=== PATIENT | male | born 1965 | race Hispanic/Latino ===

== ENCOUNTER 2018-04-22 17:15 | Emergency (ER) | payer BC ==
--- NOTE | 2018-04-22 18:04 | ER ---
Nurse's Notes [facility] Name: Yovanny Chow Age: 52 yrs Sex: Male : 1965 Arrival Date: 04/22/2018 Time: 17:20 Bed 16 Private MD: Venancio Bartlett Diagnosis: Effusion, left knee Presentation: 04/22 17:32 Presenting complaint: Patient states: I have been left knee pain for about a month and la1 I have been being worked up by an ortho doctor, they gave me a steroid injection one week ago, the pain is back and now A couple areas of swelling popped up on my graham. Transition of care: patient was not received from another setting of care. Onset of symptoms was April 22, 2018. Risk Assessment: Do you want to hurt yourself or someone else? Patient reports no desire to harm self or others. Initial Sepsis Screen: Does the patient meet any 2 criteria? No. Patient's initial sepsis screen is negative. Does the patient have a suspected source of infection? No. Patient's initial sepsis screen is negative. Care prior to arrival: None. 17:32 Method Of Arrival: Ambulatory la1 17:32 Acuity: TIMOTHY 4 la1 Historical: - Allergies: 17:30 No Known Allergies; la1 - PMHx: 17:30 Diabetes - NIDDM; Hypertension; la1 - Immunization history:: Adult Immunizations up to date. - Social history:: Smoking status: Patient/guardian denies using tobacco. - Ebola Screening: : No symptoms or risks identified at this time. Screenin:33 Abuse screen: Denies threats or abuse. Denies injuries from another. Nutritional jl7 screening: No deficits noted. Tuberculosis screening: No symptoms or risk factors identified. Fall Risk None identified. Assessment: 18:00 General: Appears in no apparent distress. uncomfortable, Behavior is calm, cooperative, jl7 appropriate for age. Pain: Complains of pain in left knee Pain currently is 10 out of 10 on a pain scale. Neuro: Level of Consciousness is awake, alert, obeys commands, Oriented to person, place, time, situation. Cardiovascular: Patient's skin is warm and dry. Respiratory: Airway is patent Respiratory effort is even, unlabored, Respiratory pattern is regular, symmetrical. Derm: Skin is pink, warm \T\ dry. Vital Signs: 17:31 BP 135 / 100; Pulse 92; Resp 16; Temp 97.3; Pulse Ox 98% on R/A; Weight 142.88 kg; la1 Height 6 ft. 3 in. (190.50 cm); 18:33 BP 140 / 87; Pulse 87; Resp 16; Pulse Ox 95% ; Pain 10/10; jl7 17:31 Body Mass Index 39.37 (142.88 kg, 190.50 cm) la1 ED Course: 17:20 Patient arrived in ED. mr 17:21 Venancio Bartlett is Private Physician. mr 17:31 Arm band placed on left wrist. la1 17:33 Triage completed. la1 17:50 Brian Lopez MD is Attending Physician. kdr 18:00 Patient has correct armband on for positive identification. jl7 18:03 Iftikhar Ramírez MD is Referral Physician. kdr 18:10 Pedro Reese, RASHAUN is Primary Nurse. jl7 18:34 No provider procedures requiring assistance completed. Patient did not have IV access jl7 during this emergency room visit. 18:34 Crutch training done. Knee immobilizer applied on left knee. jl7 Administered Medications: 18:35 Not Given (Patient Refused): Ibuprofen 800 mg PO once jl7 Outcome: 18:04 Discharge ordered by . kdr 18:34 Discharged to home ambulatory, with crutches. jl7 18:34 Condition: stable 18:34 Discharge instructions given to patient, Instructed on discharge instructions, follow up and referral plans. medication usage, crutch walking, Demonstrated understanding of instructions, follow-up care, medications, Prescriptions given X 2. 18:35 Patient left the ED. jl7 Signatures: Brian Lopez MD MD kdr Rivera, Mary Abdiaziz Ramsey, RN RN la1 Pedro Reese, RASHAUN RN jl7
--- NOTE | 2018-04-22 18:05 | EDPHYS ---
Physician Documentation [facility] Name: Yovanny Chow Age: 52 yrs Sex: Male : 1965 Arrival Date: 04/22/2018 Time: 17:20 Bed 16 Private MD: Venancio Bartlett ED Physician Brian Lopez HPI: 04/22 18:08 This 52 yrs old Male presents to ER via Ambulatory with complaints of Knee kdr Pain. 18:08 The patient presents with decreased range of motion, pain, that is acute. The kdr complaints affect the lateral aspect of left knee, posterior aspect of left knee, medial aspect of left knee and left knee. Context: The problem was sustained at an unknown site, resulted from an unknown cause, the patient can fully bear weight, the patient is able to ambulate, with mild difficulty. Onset: The symptoms/episode began/occurred gradually, 10 day(s) ago. Modifying factors: The symptoms are alleviated by remaining still, the symptoms are aggravated by movement, weight bearing, bending knee. Associated signs and symptoms: The patient has no apparent associated signs or symptoms, Pertinent positives: swelling, Pertinent negatives calf tenderness, fever, nausea, numbness, rash, tingling, vomiting, warmth, weakness. Treatment prior to arrival includes: The patient had a steroid injection from Dr. Larios about a week ago. 18:49 Severity of symptoms: At their worst the symptoms were mild, in the emergency kdr department the symptoms. The patient has not experienced similar symptoms in the past. The patient has been recently seen by a physician: Dr. Larios 1 week(s) ago, with similar presenting complaints, Told he had arthritis and was given a steroid injection - but now the pain is back. Historical: - Allergies: 17:30 No Known Allergies; la1 - PMHx: 17:30 Diabetes - NIDDM; Hypertension; la1 - Immunization history:: Adult Immunizations up to date. - Social history:: Smoking status: Patient/guardian denies using tobacco. - Ebola Screening: : No symptoms or risks identified at this time. ROS: 18:49 Constitutional: Negative for fever, chills, and weight loss, Eyes: Negative for injury, kdr pain, redness, and discharge, Neck: Negative for injury, pain, and swelling, Cardiovascular: Negative for chest pain, palpitations, and edema, Respiratory: Negative for shortness of breath, cough, wheezing, and pleuritic chest pain, Abdomen/GI: Negative for abdominal pain, nausea, vomiting, diarrhea, and constipation, Back: Negative for injury and pain, : Negative for injury, bleeding, discharge, and swelling, Skin: Negative for injury, rash, and discoloration, Neuro: Negative for headache, weakness, numbness, tingling, and seizure activity. Psych: Negative for depression, anxiety, suicide ideation, homicidal ideation, and hallucinations, Allergy/Immunology: Negative for hives, rash, and allergies, Endocrine: Negative for neck swelling, polydipsia, polyuria, polyphagia, and marked weight changes, Hematologic/Lymphatic: Negative for swollen nodes, abnormal bleeding, and unusual bruising. 18:49 MS/extremity: Positive for pain, swelling, of the left knee, Feels like a rubber band around his knee. Exam: 18:49 Constitutional: This is a well developed, well nourished patient who is awake, alert, kdr and in no acute distress. Head/Face: Normocephalic, atraumatic. Eyes: Pupils equal round and reactive to light, extra-ocular motions intact. Lids and lashes normal. Conjunctiva and sclera are non-icteric and not injected. Cornea within normal limits. Periorbital areas with no swelling, redness, or edema. Neck: Trachea midline, no thyromegaly or masses palpated, and no cervical lymphadenopathy. Supple, full range of motion without nuchal rigidity, or vertebral point tenderness. No Meningismus. Chest/axilla: Normal chest wall appearance and motion. Nontender with no deformity. No lesions are appreciated. Cardiovascular: Regular rate and rhythm with a normal S1 and S2. No gallops, murmurs, or rubs. Normal PMI, no JVD. No pulse deficits. Respiratory: Lungs have equal breath sounds bilaterally, clear to auscultation and percussion. No rales, rhonchi or wheezes noted. No increased work of breathing, no retractions or nasal flaring. Abdomen/GI: Soft, non-tender, with normal bowel sounds. No distension or tympany. No guarding or rebound. No evidence of tenderness throughout. Back: No spinal tenderness. No costovertebral tenderness. Full range of motion. Skin: Warm, dry with normal turgor. Normal color with no rashes, no lesions, and no evidence of cellulitis. Neuro: Awake and alert, GCS 15, oriented to person, place, time, and situation. Cranial nerves II-XII grossly intact. Motor strength 5/5 in all extremities. Sensory grossly intact. Cerebellar exam normal. Normal gait. Psych: Awake, alert, with orientation to person, place and time. Behavior, mood, and affect are within normal limits. 18:49 Musculoskeletal/extremity: Extremities: grossly normal except: decreased ROM, pain, swelling, tenderness, The patient has nearly full ROM with moderate anterior kayden-patellar swelling. The joint was not hot and there was no erythema.. Vital Signs: 17:31 BP 135 / 100; Pulse 92; Resp 16; Temp 97.3; Pulse Ox 98% on R/A; Weight 142.88 kg; la1 Height 6 ft. 3 in. (190.50 cm); 18:33 BP 140 / 87; Pulse 87; Resp 16; Pulse Ox 95% ; Pain 10/10; jl7 17:31 Body Mass Index 39.37 (142.88 kg, 190.50 cm) la1 Procedures: 18:49 Splinting: Splint applied to left knee using knee immobilizer, applied by tech. kdr Examined by me, post splint application: neurovascular intact, Patient tolerated well. MDM: 18:04 Patient medically screened. kdr 18:49 Data reviewed: vital signs, nurses notes. Counseling: I had a detailed discussion with kdr the patient and/or guardian regarding: the historical points, exam findings, and any diagnostic results supporting the discharge/admit diagnosis, the need for outpatient follow up. 04/22 18:03 Order name: Knee Immobilizer; Complete Time: 18:35 kdr 04/22 18:03 Order name: Crutches; Complete Time: 18:35 kdr Administered Medications: 18:35 Not Given (Patient Refused): Ibuprofen 800 mg PO once jl7 Disposition: 04/22/18 18:04 Discharged to Home. Impression: Effusion, left knee. - Condition is Stable. - Discharge Instructions: Knee Effusion, Crutch Use, [id number], Knee Immobilizer, [id number]. - Prescriptions for Ibuprofen 800 mg Oral Tablet - take 1 tablet by ORAL route every 8 hours As needed take with food; 30 tablet. Tylenol- Codeine #3 300-30 mg Oral Tablet - take 2 tablets by ORAL route every 4-6 hours As needed; 15 tablet. - Medication Reconciliation Form, Thank You Letter, Prescription Opioid Use form. - Follow up: Iftikhar Ramírez MD; When: 1 week; Reason: If symptoms return, Further diagnostic work-up, Recheck today's complaints, Continuance of care, Re-evaluation by your physician. - Problem is an ongoing problem. - Symptoms are unchanged. Signatures: Brian Lopez MD MD kdr Abdiaziz Ramsey RN RN la1 Pedro Reese RN RN jl7 Corrections: (The following items were deleted from the chart) 18:35 18:04 04/22/2018 18:04 Discharged to Home. Impression: Effusion, left knee. Condition jl7 is Stable. Forms are Medication Reconciliation Form, Thank You Letter, Antibiotic Education, Prescription Opioid Use. Follow up: Iftikhar Ramírez; When: 1 week; Reason: If symptoms return, Further diagnostic work-up, Recheck today's complaints, Continuance of care, Re-evaluation by your physician. Problem is an ongoing problem. Symptoms are unchanged. kdr
[2018-04-22] MEDS ORDERED: IBUPROFEN 400 MG TAB ONE (18:22)
== END 2018-04-22 18:35 | disposition home or self-care (01) ==
LOC: ER 17:15
DX: M25.462 Effusion, left knee (principal)
CPT/HCPCS: 99283